=== PATIENT | male | born 1955 | race Caucasian/White ===

== ENCOUNTER 2018-07-25 10:15 | Emergency (ER) | payer OTHER, MEDICAID ==
[~2018-07-25] VITALS: Ht 165.1 cm; Wt 66.2 kg
[2018-07-25 10:19] VITALS: BP 172/108; Ht 165.1 cm; Wt 66.2 kg
== END 2018-07-25 11:40 | disposition home or self-care (01) ==
LOC: ED 10:15
DX: S60.022A Contusion of left index finger without damage to nail, initial encounter (principal); W22.8XXA Striking against or struck by other objects, initial encounter; Y93.89 Activity, other specified; Y92.89 Other specified places as the place of occurrence of the external cause; Y99.8 Other external cause status